=== PATIENT | male | born 1980 | race African-American/Black ===

== ENCOUNTER 2017-01-17 10:13 | Emergency (ER) | payer MEDICAID ==
[~2017-01-17] VITALS: Ht 182.9 cm; Wt 80.0 kg
[~2017-01-17 10:13] MED LIST: MTF1000T PO
[2017-01-17 10:27] VITALS: Ht 182.9 cm; Wt 80.0 kg
[2017-01-17] MEDS ORDERED: SOD CHLORIDE 0.9% 1,000 ML IV STA (10:52)
[2017-01-17] MEDS ORDERED: LANT3I SC (11:16)
[2017-01-17] MEDS ORDERED: INSU100C SQ (11:17)
--- NOTE | 2017-01-17 11:22 | RADRPT ---
PROCEDURE: XR Chest. CLINICAL INDICATION: Chest pain TECHNIQUE: Chest AP portable. COMPARISON: No comparison available. FINDINGS: The mediastinal structures are unremarkable. The heart is normal in size and configuration. The pu lmonary vascularity is normal. The lung zamora are unremarkable. No consolidation is identified. The pleural spaces are unremarkable. The axial skeleton is unremarkable. IMPRESSION: No active intrathoracic disease. RPTAT: HGDB .Jamison Russ MD, MD Date Time Electronically viewed and signed by .Jamison Russ MD, MD on 01/17/2017 11:22 .B/
[2017-01-17 11:26] LABS: BASOPHILS % 0.6 % (0.0-2.0); EOSINOPHILS # 0.1 10^3/ul (0.0-0.5); HEMATOCRIT 35.8 % (42.0-52.0); LYMPHOCYTES # 1.2 10^3/ul (0.8-2.9); MEAN CORPUSCULAR HEMOGLOBIN 28.7 pg (29.0-33.0); MEAN CORPUSCULAR HGB CONC 33.5 g/dl (32.0-37.0); MEAN CORPUSCULAR VOLUME 85.8 fl (82.0-101.0); MEAN PLATELET VOLUME 7.6 fl (7.4-10.4); MONOCYTE # 0.3 10^3/ul (0.3-0.9); MONOCYTES % 5.2 % (0.0-11.0); NEUTROPHIL # 4.5 10^3/ul (1.6-7.5); NEUTROPHILS % 72.2 % (39.0-77.0); PLATELET COUNT 297 10^3/UL (140-440); RED BLOOD COUNT 4.16 10^6/ul (4.70-6.10); RED CELL DISTRIBUTION WIDTH 14.5 % (11.5-14.5); UNCORRECTED WBC 6.2 10^3/ul (4.8-10.8); WHITE BLOOD COUNT 6.2 10^3/ul (4.8-10.8)
[2017-01-17 11:29] LABS: CONDITION 1
[2017-01-17 11:55] LABS: ALBUMIN 3.8 g/dl (3.3-4.9); CHLORIDE 104 mmol/L (97-110); SODIUM 137 mmol/L (135-144)
[2017-01-17 11:56] LABS: POTASSIUM 4.6 mmol/L (3.5-5.1)
[2017-01-17 11:58] LABS: ALANINE AMINOTRANSFERASE 75 IU/L (13-69); ALBUMIN/GLOBULIN RATIO 1.05; ALKALINE PHOSPHATASE 245 IU/L (42-121); ANION GAP 17 (8-16); ASPARTATE AMINO TRANSFERASE 57 IU/L (15-46); BILIRUBIN,INDIRECT 0.2 mg/dl (0-1.1); BILIRUBIN,TOTAL 0.2 mg/dl (0.2-1.3); BLOOD UREA NITROGEN 11 mg/dl (7-20); CALCIUM 8.7 mg/dl (8.4-10.2); CARBON DIOXIDE 21 mmol/L (21-31); CREATININE 0.74 mg/dl (0.61-1.24); GLUCOSE 318 mg/dl (70-220); TOTAL PROTEIN 7.4 g/dl (6.1-8.1)
[2017-01-17 12:11] LABS: TROPONIN-I < 0.012 ng/ml (0.00-0.12)
--- NOTE | 2017-01-17 12:22 | RADRPT ---
PROCEDURE: CT brain without contrast CLINICAL INDICATION: Head pain TECHNIQUE: CT of the brain without contrast performed on a multidetector CT scanner, with multiplan ar reformats. One or more of the following dose reduction techniques were used: Automated exposure control, adjustment in mA and / or kV according to patient size, use of iterative reconstructive radu hnique. CTDIvol = 45 mGy; DLP = 630 mGy-cm. COMPARISON: None available FINDINGS: There is a small area of encephalomalacia at the left temporal lobe, probably post-traumatic. No ac [facility] intracranial hemorrhage is identified. No extra-axial fluid collection is seen. There is no mass effect. No midline shift is identified. Ventricles and sulci are mildly enlarged compatible with generalized volume loss. Otherwise lindsay-white differentiation is preserved. Osseous structures are unremarkable. Partial posterior ethmoid air cell opacification is noted. IMPRESSION: 1. No evidence of acute intracranial pathology. 2. 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 3. Mild generalized volume loss. RPTAT: VV .Ethan Dykes MD, MD Date Time Electronically viewed and signed by .Ethan Dykes MD, on 01/17/2017 12:21 .O/
[2017-01-17] MEDS ORDERED: LEVE750T70 PO (13:16)
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
[2017-01-17] MEDS ORDERED: LEVETIRACETAM 750 MG TAB PO ONE (13:30)
[2017-01-17 13:35] VITALS: BP 133/93; PULSE 95; RESP 18; TEMP 98.1
== END 2017-01-17 13:59 | disposition home or self-care (01) ==
LOC: E/R 10:13
DX: G40.909 Epilepsy, unspecified, not intractable, without status epilepticus (principal); I10 Essential (primary) hypertension; F17.210 Nicotine dependence, cigarettes, uncomplicated; E11.9 Type 2 diabetes mellitus without complications; Z79.4 Long term (current) use of insulin; Z79.84 Long term (current) use of oral hypoglycemic drugs
CPT/HCPCS: 36415; 70450; 71010; 80053; 82962; 83690; 84484; 85025; 93005; J7030; Z7502; Z7610